=== PATIENT | female | born 1995 | race Caucasian/White ===

== ENCOUNTER 2020-11-26 20:04 | Outpatient (CLI) | payer BC ==
--- OUTSIDE RECORDS SUMMARY | 2020-12-02 01:22 | EXTERNAL MEDICAL SUMMARY RPT | Continuity of Care Document ---
:1995 Demographics Phone Unavailable Preferred Language Unknown Marital Status Unknown Advent Affiliation Unknown Race Unknown Ethnic Group Unknown Author Organization [place] Address [address] [phone] Phone Care Team Providers Name Role Phone Siddiqi Unavailable Unavailable Results test status date ordered by attending specimen noni e null F 2020-11-26 LANG.99 VALENTINA JANEY 11-26 16:59:00 12:40:00 facility observation status value reference units lab abnor mal line notes range code [facility] F NEGATIVE unknown [facility] - Report scanned to Patient' s EMR. Testing perform[facility] d at [facility] Social History date description facility [id number]
== END 2020-11-26 20:05 | disposition home or self-care (01) ==
LOC: COV 20:04
PROVIDERS: ATTEND Family Medicine
DX: R06.02 Shortness of breath (principal); R53.83 Other fatigue; Z20.822 Contact with and (suspected) exposure to COVID-19